=== PATIENT | female | born 1970 | race Caucasian/White ===

== ENCOUNTER 2017-12-16 09:56 | Emergency (ER) | payer MEDICAID ==
[~2017-12-16] VITALS: Ht 152.4 cm; Wt 87.7 kg
[2017-12-16 10:39] VITALS: Ht 152.4 cm; Wt 87.7 kg
[2017-12-16 11:07] LABS: UA SPECIFIC GRAVITY 1.025 (1.005-1.035); microscopic required? YES; urine erythrocyte NEGATIVE (NEGATIVE)
[2017-12-16 11:57] VITALS: BP 129/93
== END 2017-12-16 12:24 | disposition home or self-care (01) ==
LOC: ED 09:56
PROVIDERS: Emergency Medicine
DX: N39.0 Urinary tract infection, site not specified (principal); F17.210 Nicotine dependence, cigarettes, uncomplicated; E05.90 Thyrotoxicosis, unspecified without thyrotoxic crisis or storm; R31.9 Hematuria, unspecified; Z88.5 Allergy status to narcotic agent
CPT/HCPCS: 99406

== ENCOUNTER 2019-01-19 10:13 | Emergency (ER) | payer MEDICAID ==
[~2019-01-19] VITALS: Ht 152.4 cm; Wt 89.4 kg
[2019-01-19 10:32] VITALS: Ht 152.4 cm; Wt 89.4 kg
[2019-01-19 12:07] VITALS: BP 136/91
[2019-01-19 12:18] LABS: microscopic required? NO
[2019-01-19 12:53] LABS: UA SPECIFIC GRAVITY >=1.030 (1.005-1.035); urine erythrocyte NEGATIVE (NEGATIVE)
== END 2019-01-19 12:07 | disposition home or self-care (01) ==
LOC: ED 10:13
PROVIDERS: Specialist
DX: R30.0 Dysuria (principal); R35.0 Frequency of micturition; N89.8 Other specified noninflammatory disorders of vagina; E05.90 Thyrotoxicosis, unspecified without thyrotoxic crisis or storm; F17.210 Nicotine dependence, cigarettes, uncomplicated